=== PATIENT | male | born 1940 | race Caucasian/White ===

== ENCOUNTER 2018-08-12 10:42 | Emergency (ER) | payer OTHER ==
[2018-08-12 10:59] VITALS: BP 146/92
--- NOTE | 2018-08-12 11:16 | EDPHY ---
H & P Time Seen by Provider: 08/12/18 11:15 HPI/ROS: Chief complaint. Rash HPI. Patient is a 78-year-old male presents to the emergency department with rash to the right side of his chest for 1 day. He describes it as tender. He really had no prodrome although he felt over the last few days that he maybe had some dry skin on both sides of his chest. No new foods, cleansers, detergents. No trouble swallowing or breathing. The rash is tender not itchy. ROS 10 systems were reviewed and negative with the exception of the elements mentioned in the history of present illness Past Medical/Surgical History: Hip replacement Social History: , nonsmoker, no alcohol Smoking Status: Never smoked Physical Exam: General Appearance: Alert pleasant well-developed male mild distress vital signs are stable Eyes: Pupils equal and round no pallor or injection. ENT, Mouth: Mucous membranes are moist. Respiratory: There are no retractions, lungs are clear to auscultation. Cardiovascular: Regular rate and rhythm. Gastrointestinal: Abdomen is soft and nontender, no masses, bowel sounds normal. Neurological: Awake and alert, sensory and motor exams grossly normal. Skin: Maculopapular rash with some vesicles to the right-sided chest. It goes from the right side of thoracic spine at the level of T8 around the mid axillary line and to medial scapular line. Some vesicles present. Musculoskeletal: Neck is supple nontender. Extremities symmetrical, full range of motion. Psychiatric: Patient is oriented X 3, there is no agitation. Constitutional: Initial Vital Signs Temperature (C) 36.8 C 08/12/18 10:54 Heart Rate 84 08/12/18 10:54 Respiratory Rate 14 08/12/18 10:54 Blood Pressure 146/92 H 08/12/18 10:54 O2 Sat (%) 96 08/12/18 10:54 O2 Delivery Mode Room Air Allergies/Adverse Reactions: No Known Allergies Allergy (Unverified 08/12/18 10:53) Home Medications: Medication Instructions Recorded Valacyclovir HCl [Valtrex] 1,000 mg PO TID #21 tab 08/12/18 Medical Decision Making ED Course/Re-evaluation: Patient and I discussed diagnosis, treatment plan, criteria for return, importance of follow-up and further evaluation. He expresses understanding and agreement Differential Diagnosis: Macular papular and vesicular rash in thoracic dermatome on the right. Diagnosis is shingles Departure - Departure Disposition: Home, Routine, Self-Care Clinical Impression: Herpes zoster Qualifiers: Herpes zoster complications: without complications Qualified Code(s): B02.9 - Zoster without complications Condition: Good Instructions: Shingles (ED), Shingles Vaccine (ED) Additional Instructions: Valtrex using 1 pill 3 times daily for 7 days Tylenol or Advil for discussed Gentle cleaning daily in the shower with washcloth and water Rash is contagious until it is crusted In 6-9 months consider shingles vaccine. You may discuss this with your regular physician Referrals: Jesus Lala MD [Primary Care Provider] - 3-4 days, if not improved Prescriptions: Valacyclovir HCl [Valtrex] 1,000 mg PO TID #21 tab
== END 2018-08-12 11:36 | disposition home or self-care (01) ==
LOC: CED 10:42
DX: B02.9 Zoster without complications (principal)